=== PATIENT | female | born 1955 | race Caucasian/White ===

== ENCOUNTER 2018-08-19 11:34 | Observation (INO) | payer OTHER ==
[2018-08-16 11:24] VITALS: BP 146/91
[2018-08-16 11:31] LABS: BASOPHILS # (AUTO) 0.03 x10^3/uL (0-0.1); BASOPHILS % (AUTO) 0 % (0-1); EOSINOPHILS # (AUTO) 0.02 x10^3/uL (0-0.4); EOSINOPHILS % (AUTO) 0 % (1-7); LYMPHOCYTES # (AUTO) 1.19 x10^3/uL (1-3.4); LYMPHOCYTES % (AUTO) 11 % (22-44); MD NO; MEAN CORPUSCULAR HGB CONC 34.2 g/dL (32.4-35.8); MEAN CORPUSCULAR VOLUME 90.7 fL (80-100); MEAN PLATELET VOLUME 9.3 fL (7.4-10.4); MONOCYTES # (AUTO) 0.55 x10^3/uL (0.2-0.8); MONOCYTES % (AUTO) 5 % (2-9); NEUTROPHILS # (AUTO) 9.16 x10^3/uL (1.8-6.8); NEUTROPHILS % (AUTO) 84 % (42-75); PLATELET COUNT 326 x10^3/uL (130-400); RED BLOOD COUNT 4.84 x10^6/uL (3.82-5.3); RED CELL DISTRIBUTION WIDTH 12.8 % (9.6-15.2)
[2018-08-16 11:41] LABS: INTERNATIONAL NORMALIZED RATIO 0.95 (0.93-1.1)
[2018-08-16 12:36] LABS: ALANINE AMINOTRANSFERASE 18 U/L (12-78); ALBUMIN 4.1 g/dL (3.4-5.0); ANION GAP 5 mmol/L (5-15); CALCIUM 9.7 mg/dL (8.5-10.1); CHLORIDE 107 mmol/L (98-107)
[2018-08-16 12:39] LABS: ALKALINE PHOSPHATASE 88 U/L (45-117); BILIRUBIN,TOTAL 0.5 mg/dL (0.2-1.0); CREATININE 0.87 mg/dL (0.55-1.02); TOTAL PROTEIN 8.2 g/dL (6.4-8.2)
[~2018-08-19] VITALS: Ht 175.3 cm; Wt 58.6 kg
[~2018-08-19 11:34] MED LIST: FISH OIL PO; LORA0.5T PO; MULT-308 PO; PROBIOTIC PO; VITAMIN D3 PO
[2018-08-19] MEDS ORDERED: LACTATED RINGERS 1,000 ML IV SCH ×2 (12:52→19:32)
[2018-08-19] MEDS ORDERED: DIAZEPAM 5 MG TABLET PO ONE (13:00)
[2018-08-19] MEDS ORDERED: GABAPENTIN 300 MG CAPSULE PO ONE (13:00)
[2018-08-19] MEDS ORDERED: SCOPOLAMINE PATCH, 1.5MG PATCH.TD72 TD ONE (13:00)
[2018-08-19] MEDS ORDERED: ACETAMINOPHEN 500 MG TABLET PO ONE (13:00)
[2018-08-19] MEDS ORDERED: MIDAZOLAM 1 MG/ML, 2ML ONE (15:44)
[2018-08-19] MEDS ORDERED: FENTANYL PF 250 MCG/5ML ONE (15:44)
[2018-08-19] MEDS ORDERED: BUPIVACAINE/PF 0.25% ONE (15:46)
[2018-08-19] MEDS ORDERED: NEOSTIGMINE 1 MG/ML, 10ML ONE (16:06)
[2018-08-19] MEDS ORDERED: GLYCOPYRROLATE 0.2MG/1ML, 5ML ONE (16:06)
[2018-08-19] MEDS ORDERED: PROMETHAZINE 12.5 MG SUPP PR PRN ×2 (16:30→20:00)
[2018-08-19] MEDS ORDERED: LABETALOL 5MG/ML, 20ML IV PRN ×2 (16:30→20:00)
[2018-08-19] MEDS ORDERED: ALBUTEROL SULFATE 2.5 MG/3 ML NPPB PRN ×2 (16:30→20:00)
[2018-08-19] MEDS ORDERED: PROMETHAZINE 25 MG/ML, 1ML IV PRN (16:30)
[2018-08-19] MEDS ORDERED: OXYcodone 5 MG/5 ML ORAL.SOL UDC PO PRN ×2 (16:30→20:00)
[2018-08-19] MEDS ORDERED: EPHEDRINE 50 MG/ML, 1ML IVPush PRN (16:30)
[2018-08-19] MEDS ORDERED: MORPHINE SULFATE 4 MG/ML, 1ML IVPush PRN ×2 (16:30→20:00)
[2018-08-19] MEDS ORDERED: DIAZEPAM 5 MG/ML, 2ML IVPush PRN ×2 (16:30→20:00)
[2018-08-19] MEDS ORDERED: HYDROmorphone 2 MG/ML, 1ML IVPush PRN ×2 (16:30→20:00)
[2018-08-19] MEDS ORDERED: hydrALAzine 20 MG/ML, 1ML IV PRN ×2 (16:30→20:00)
[2018-08-19] MEDS ORDERED: FENTANYL PF 100 MCG/2ML IV PRN ×2 (16:30→20:00)
[2018-08-19] MEDS ORDERED: MEPERIDINE/PF 25MG/0.5ML IVPush PRN ×2 (16:30→20:00)
[2018-08-19] MEDS ORDERED: ONDANSETRON ODT 8 MG PO PRN ×2 (16:30→20:00)
[2018-08-19] MEDS ORDERED: LORazepam 2 MG/ML, 1ML IVPush PRN ×2 (16:30→20:00)
[2018-08-19] MEDS ORDERED: MIDAZOLAM 1 MG/ML, 2ML IV PRN ×2 (16:30→20:00)
[2018-08-19] MEDS ORDERED: ONDANSETRON 2MG/ML, 2ML IV PRN (16:30)
[2018-08-19] MEDS ORDERED: PROPOFOL 10 MG/ML, 20ML ONE (19:02)
[2018-08-19] MEDS ORDERED: DEXAMETHASONE 4 MG/ML, 5ML ONE (19:02)
[2018-08-19] MEDS ORDERED: ROCURONIUM 10MG/ML,5ML ONE (19:02)
[2018-08-19] MEDS ORDERED: SUCCINYLCHOLINE 20 MG/ML, 10ML ONE (19:02)
[2018-08-19] MEDS ORDERED: ONDANSETRON 2MG/ML, 2ML ONE (19:02)
[2018-08-19] MEDS ORDERED: KETOROLAC 30 MG/1 ML ONE (19:03)
[2018-08-19] MEDS ORDERED: OXYcodone 5 MG/5 ML ORAL.SOL UDC ONE (19:45)
[2018-08-19] MEDS ORDERED: HYDROmorphone 1 MG/ML, 1ML ONE (19:45)
[2018-08-19] MEDS ORDERED: MEPERIDINE/PF 25MG/ML,1ML ONE (19:49)
[2018-08-19] MEDS ORDERED: OXYcodone/APAP 5/325MG TABLET PO PRN (20:00)
[2018-08-19] MEDS ORDERED: EPHEDRINE 50 MG/ML, 1ML IM PRN (20:00)
[2018-08-19] MEDS ORDERED: KETOROLAC 30 MG/1 ML IVPush PRN (20:00)
[2018-08-19] MEDS ORDERED: HALOPERIDOL 5 MG/ML IV PRN (20:00)
[2018-08-20] VITALS: BP 130/80
[2018-08-20 04:00] VITALS: BP 123/68
[2018-08-20 06:50] VITALS: BP 133/79
[2018-08-20] MEDS ORDERED: OXYC-306 PO (11:40)
[2018-08-20] MEDS ORDERED: ONDA4TAB13 PO (11:41)
== END 2018-08-20 13:50 | disposition home or self-care (01) ==
LOC: OUT 11:34 → ORIP 19:32 → 3NW 20:59 → DCLOUNGE 08-20 13:28
PROVIDERS: ADMIT Specialist; ATTEND Specialist
DX: C56.9 Malignant neoplasm of unspecified ovary (principal); D25.9 Leiomyoma of uterus, unspecified; I89.8 Other specified noninfective disorders of lymphatic vessels and lymph nodes; N83.201 Unspecified ovarian cyst, right side
CPT/HCPCS: 36415; 38572; 58571; 71046; 74018; 80053; 85025; 85610; 85730; 86304; 86850; 86900; 88112; 88305; 88307; 88331; 93005; 96374; G0378; J0330; J1100; J1170; J1885; J2175; J2250; J2405; J2704; J2710; J3010; J3490; J7120; S2900

== ENCOUNTER 2020-03-26 10:11 | Emergency (ER) | payer OTHER ==
[~2020-03-26] VITALS: Ht 175.3 cm; Wt 58.0 kg
[~2020-03-26 10:11] MED LIST changes: +ONDA4TAB13 PO; +OXYC-306 PO
--- NOTE | 2020-03-26 10:14 | NUR ---
CALLED FOR TRIAGE "SHE JUST WENT TO THE [facility]"
--- NOTE | 2020-03-26 10:36 | NUR ---
THIS IS A 65 YO F W/ C/O CP DESCRIBED TIGHTNESS THAT STARTED YESTERDAY. PT REPORTS PAIN MORE SEVERE YESTERDAY, NOW "SORE" IN BILAT SHOULDERS. PT DENIES CARDIAC HX. PT STATES THAT SHE HAS BEEN UNDER A GREAT DEAL OF STRESS OVER THE PAST FEW WEEKS. PT RESTING ON [employer] W/ CALL LIGHT IN REACH AND SIDE RAILS UPX2. CONNECTED TO ALL MONITORING. PT TACHYCARDIC, OTHER VS WDL. ESTRELLA PICKARD AT BEDSIDE FOR ED EVAL.
[2020-03-26] MEDS ORDERED: ASPIRIN 81 MG TABLET CHEW ONE (10:41)
--- NOTE | 2020-03-26 10:50 | NUR ---
LAB IN ROOM.
[2020-03-26] MEDS ORDERED: ASPIRIN 81 MG TABLET CHEW PO ONE (11:00)
[2020-03-26 11:12] LABS: BASOPHILS % (AUTO) 1 % (0-1); EOSINOPHILS % (AUTO) 1 % (1-7); LYMPHOCYTES % (AUTO) 17 % (22-44); MEAN CORPUSCULAR HEMOGLOBIN 30.8 pg (27.0-34.8); MEAN CORPUSCULAR HGB CONC 33.8 g/dL (32.4-35.8); MEAN PLATELET VOLUME 9.7 fL (7.4-10.4); MONOCYTES % (AUTO) 8 % (2-9); NEUTROPHILS % (AUTO) 74 % (42-75); PLATELET COUNT 251 x10^3/uL (130-400); RED BLOOD COUNT 4.93 x10^6/uL (3.82-5.3); RED CELL DISTRIBUTION WIDTH 12.8 % (9.6-15.2)
[2020-03-26 11:25] LABS: ALBUMIN 4.2 g/dL (3.4-5.0); ANION GAP 5 mmol/L (5-15); CHLORIDE 108 mmol/L (98-107)
[2020-03-26 11:26] LABS: MD NO
[2020-03-26 11:31] LABS: ALANINE AMINOTRANSFERASE 22 U/L (12-78); ALKALINE PHOSPHATASE 89 U/L (45-117); BILIRUBIN,TOTAL 0.6 mg/dL (0.2-1.0); CREATININE 0.88 mg/dL (0.55-1.02); TOTAL PROTEIN 7.9 g/dL (6.4-8.2); TROPONIN I < 0.015 ng/mL (0.000-0.045)
[2020-03-26 11:40] VITALS: BP 148/94
--- NOTE | 2020-03-26 11:40 | NUR ---
ALL TESTS RESULTED, PT IS UP FOR RECHECK AT THIS TIME. RESP EVEN AND UNLABORED, NADN.
--- NOTE | 2020-03-26 12:35 | NUR ---
Patient given discharge instructions and they have confirmed that they understand the instructions. Patient ambulatory with steady gait.
== END 2020-03-26 12:36 | disposition home or self-care (01) ==
LOC: ED 12:18
DX: R07.2 Precordial pain (principal); R07.89 Other chest pain; Z90.89 Acquired absence of other organs; Z85.43 Personal history of malignant neoplasm of ovary; Z90.710 Acquired absence of both cervix and uterus
CPT/HCPCS: 36415; 71045; 80053; 84484; 85025; 85379; 93005; 99285